=== PATIENT | female | born 1970 | race Caucasian/White ===

== ENCOUNTER → 2024-12-28 13:58 | Outpatient (BNVA) | payer OTHER, SELFPAY | PROVIDERS: PCP Family Medicine; Visit Provider Physician Assistant | DX: M53.3 Sacrococcygeal disorders, not elsewhere classified (principal) | CPT/HCPCS: 99202 ==

== ENCOUNTER → 2025-01-03 11:24 | Outpatient (BNVA) | payer OTHER, SELFPAY | PROVIDERS: PCP Internal Medicine; Visit Provider Physician Assistant Medical | DX: M53.3 Sacrococcygeal disorders, not elsewhere classified (principal) | CPT/HCPCS: 99213 ==

== ENCOUNTER → 2025-01-09 13:21 | Outpatient (BNVA) | payer OTHER, SELFPAY | PROVIDERS: PCP Internal Medicine; Visit Provider Physician Assistant Medical | DX: M53.3 Sacrococcygeal disorders, not elsewhere classified (principal) | CPT/HCPCS: 99213 ==

== ENCOUNTER → 2025-01-16 14:56 | Outpatient (BNVA) | payer OTHER, SELFPAY | PROVIDERS: PCP Internal Medicine; Visit Provider Physician Assistant Medical | DX: M53.3 Sacrococcygeal disorders, not elsewhere classified (principal) | CPT/HCPCS: 99213 ==

== ENCOUNTER 2025-01-24 15:00 | Outpatient (RCR) | payer OTHER, SELFPAY ==
--- NOTE | 2025-01-04 11:51 | MHC.PT.EP ---
[facility] [employer] [facility] [place] [facility] [place] [facility] [address] Jeannine Davis [address] [phone] F: [phone] F: [phone] F: [phone] F: [phone] Physical Therapy Plan of Care Date of Evaluation: 01/04/25 Date of Surgery: Diagnosis: coccyx pain, SIJ pain, piriformis pain (RS) Assessment: Breana Cho is a pleasant 54 y.o. female who is referred to PT by Laura Platt PA-C of [facility] [employer] with Dx of coccyx pain, SIJ pain, piriformis pain. She presents with imbalances in her L pelvis/scarum with tenderness and tightness in L piriformis and QL muscle with weakness in glute med and max, antalgic gait involving L side. This impairs her ability to work full duty, sit for prolonged periods of time, perform sit to stand movements, drive long distances, perform prolonged activities like standing or walking. She will benefit from skilled PT to address aforementioned impairments and functional limitations to meet established goals. Frequency and Duration: The patient will be seen 2x/week for 4 weeks Short Term Goals: 2 weeks Patient demonstrates consistency and independence with HEP to self manage symptoms. Jail Goals: 4 weeks Patient presents with increased L hip flexion 5/5 without pain to be able to perform sit to stand without symptoms. Patient presents with increased lumbar spine extension 25 degrees to be able to sit for prolonged period time at work and return full duty. Treatment Plan: Modalities to reduce pain, spasms and effusion. Manual therapy to restore motion and function. Therapeutic exercise to improve strength and flexibility. Neuromuscular re-education for posture and balance. Therapeutic activities to return to functional activities of daily living. Electronically signed by: Tay Alford, PT, DPT Please sign and return to therapist. Thank you for your referral.
--- NOTE | 2025-03-10 09:59 | MHC.PT.DC ---
[facility] [place] [facility] [place] [facility] [place] [facility] [address] Jeannien Davis [address] [phone] F: [phone] F: [phone] F: [phone] F: [phone] Physical Therapy Discharge Report Diagnosis: coccyx pain, SIJ pain, piriformis pain (RS) Date of Surgery: Date of Evaluation: 01/04/25 Date of Discharge: 03/10/25 Treatments to Date: 7 Cancellations to Date: No Shows to Date: Discharge Status: Achieved Goals Improved Function Independent with HEP Discharge Summary: Breana made progress with PT interventions with focus on modalities for pain control, manual therapy and therapeutic exercises and activities. She showed improvement in gait pattern and with reduction in familiar pain and symptoms. She is discharged from PT at this time as her insurance claim ended and further visits were denies. Electronically signed by: Tay Alford, PT, DPT Please sign and return to therapist. Thank you for your referral.
== END 2025-03-10 09:59 | disposition home or self-care (01) ==
LOC: HO.PT 15:00
PROVIDERS: PCP Internal Medicine; Visit Provider Physician Assistant
DX: M53.3 Sacrococcygeal disorders, not elsewhere classified (principal)
CPT/HCPCS: 97014; 97110; 97140; 97161; 97530; 97535

== ENCOUNTER → 2025-01-30 15:06 | Outpatient (BNVA) | payer OTHER, SELFPAY | PROVIDERS: PCP Internal Medicine; Visit Provider Physician Assistant Medical | DX: M53.3 Sacrococcygeal disorders, not elsewhere classified (principal); Z02.79 Encounter for issue of other medical certificate | CPT/HCPCS: 99213 ==